=== PATIENT | female | born 1930 | race Caucasian/White ===

== ENCOUNTER 2017-01-24 08:08 | Emergency (ER) | payer MEDICARE, OTHER ==
[2017-01-24] MEDS ORDERED: Lidocaine 1% with EPINEPHrine 1:100,000 20 ML MDV INJECT ONE (08:12)
[2017-01-24 08:19] VITALS: BP 158/69
[2017-01-24] MEDS ORDERED: Bacitracin Oint 15 GM Tube TOP ONE (08:20)
--- NOTE | 2017-01-24 08:20 | EDM.PDOC ---
ED HPI GENERAL MEDICAL PROBLEM - General Chief Complaint: Laceration Stated Complaint: FALL Time Seen by Provider: 01/24/17 08:10 Source of Information: Reports: Patient, EMS, Old Records History Limitations: Reports: No Limitations - History of Present Illness INITIAL COMMENTS - FREE TEXT/NARRATIVE: 86 yo female scheduled today to enter a local [facility] fell at her home and could not get up. She incurred a scalp laceration in her fall. No extremity injuries. No LOC, nausea, or neck pain. Last tetanus was 10/08. Is on no anticoagulants. Onset: Today Onset Date: 01/24/17 Onset Time: 07:00 Duration: Minutes: Location: Reports: Head Quality: Reports: Other (Denies pain.) Severity: Mild Improves with: Reports: None Worsens with: Reports: None Context: Reports: Trauma Associated Symptoms: Reports: No Other Symptoms Treatments OLIVE PICKER: Reports: Other (see below) (none) Left Knee Pain Score (Numeric/FACES): 10 - Related Data Allergies Allergy/AdvReac Type Severity Reaction Status Date / Time morphine Allergy Cannot Verified 01/24/17 08:08 Remember Penicillins Allergy Cannot Verified 01/24/17 08:08 Remember tolterodine tartrate Allergy Rash Verified 01/24/17 08:08 [From [facility]] Home Meds: Home Meds Acetaminophen/HYDROcodone [[place] 325-5 MG] 1 - 2 tab PO Q4H PRN #20 tab [Rx] Citalopram Hydrobromide [Citalopram HBr] 20 mg PO DAILY 10/12/15 [History] Metoprolol Tartrate [Metoprolol Tartrate] 50 mg PO DAILY 10/12/15 [History] Oxybutynin 5 mg PO DAILY 10/12/15 [History] Potassium Chloride 10 meq PO DAILY 10/12/15 [History] Triamterene/Hydrochlorothiazid [Triamterene-HCTZ 37.5-25 MG] 1 tab PO DAILY [History] Acetaminophen [Tylenol Arthritis] 650 mg PO BID 11/24/15 [History] Aspirin/Calcium Carbonate/Mag [Aspirin Buffered 325 mg Tab] 325 mg PO DAILY 07/10 [History] Diclofenac Sodium [Voltaren 1% Gel] 1 applic TOP QID 11/24/15 [History] Isosorbide Mononitrate [Imdur] 30 mg PO DAILY 11/24/15 [History] Ketoconazole [Nizoral 2% Crm] 1 applic TOP DAILY 11/24/15 [History] Methimazole [Tapazole] 5 mg PO DAILY 11/24/15 [History] Nystatin [Nystatin Crm] 1 applic TOP BID 11/24/15 [History] Triamcinolone Acetonide [Triamcinolone Acetonide 0.1% Crm] 1 applic TOP BID 07/10 [History] Gabapentin [Neurontin] 300 mg PO BEDTIME 11/25/15 [History] Past Medical History HEENT History: Reports: Cataract, Other (See Below) Other HEENT History: CORNEAL DYSTROPHY, KERATOCONJUNTIVITIS SICCA OF BOTH EYES Cardiovascular History: Reports: Heart Failure, High Cholesterol, Hypertension Other Cardiovascular History: CARDIOMEGALY, DISEASE OF TRICUSPID VALVE, MITRAL VALVE INSUFFICIENCY, AORTIC VALVE INSUFFICIENCY, PULMONARY VALVE DISORDERS. Respiratory History: Reports: SOB Gastrointestinal History: Reports: Colon Polyp Genitourinary History: Reports: Urinary Incontinence, Other (See Below) Other Genitourinary History: OVERACTIVE BLADDER Musculoskeletal History: Reports: Osteoarthritis, Other (See Below) Other Musculoskeletal History: ABNORMAL INVOLUNTARY MOVEMENTS, TREMOR Neurological History: Reports: Headaches, Chronic Other Neuro History: History of migranes, not anymore, has headaches now Psychiatric History: Reports: Other (See Below) Other Psychiatric History: DYSTHYMIA Endocrine/Metabolic History: Reports: Hyperthyroidism, Hypothyroidism Other Endocrine/Metabolic History: On thyroid medicine now. Dermatologic History: Reports: Other (See Below) Other Dermatologic History: CINDY INFECTION OF FLEXURAL SKIN, ECZEMA - Past Surgical History HEENT Surgical History: Reports: Cataract Surgery, Tonsillectomy Female Surgical History: Reports: Breast Biopsy, Hysterectomy Musculoskeletal Surgical History: Reports: Other (See Below) Social & Family History - Tobacco Use Smoking Status *Q: Never Smoker - Recreational Drug Use Recreational Drug Use: No ED ROS GENERAL - Review of Systems Review Of Systems: See Below Constitutional: Reports: No Symptoms HEENT: Reports: No Symptoms Respiratory: Reports: No Symptoms Cardiovascular: Reports: No Symptoms GI/Abdominal: Reports: No Symptoms : Reports: No Symptoms Musculoskeletal: Reports: Leg Pain, Joint Pain, Other (chronic L knee pain). Denies: Neck Pain, Arm Pain, Back Pain, Hand Pain Skin: Reports: Wound (scalp laceration.) Neurological: Reports: Difficulty Walking (chronic). Denies: Confusion, Dizziness, Headache, Numbness, Paresthesia, Seizure, Syncope, Trouble Speaking Psychiatric: Reports: No Symptoms ED EXAM, SKIN/RASH Exam: See Below Exam Limited By: No Limitations General Appearance: Alert, WD/WN, No Apparent Distress Eye Exam: Bilateral Eye: Normal Inspection, PERRL Ears: Normal External Exam, Normal Canal, Hearing Grossly Normal Nose: Normal Inspection, Normal Mucosa, No Blood Throat/Mouth: Normal Inspection, Normal Lips, Normal Teeth, Normal Oropharynx, Normal Voice, No Airway Compromise Head: Atraumatic, Normocephalic Neck: Normal Inspection, Supple, Non-Tender, Full Range of Motion Respiratory/Chest: No Respiratory Distress, Lungs Clear, Normal Breath Sounds, No Accessory Muscle Use Cardiovascular: Regular Rate, Rhythm GI/Abdominal: Normal Bowel Sounds, Soft, Non-Tender, No Distention Back Exam: Normal Inspection Extremities: Normal Inspection, Normal Range of Motion, Non-Tender, No Pedal Edema Neurological: Alert, Oriented, CN II-XII Intact, Normal Cognition, No Motor/ Sensory Deficits Psychiatric: Normal Affect, Normal Mood Skin: Warm, Dry, Normal Color, No Rash, Wound/Incision (2 cm linear scalp laceration to the L temporal area. No hematoma.) Location, Skin: Head Characteristics: Linear Lymphatic: No Adenopathy Course - Vital Signs Text/Narrative:: Scalp wound anesth with 3 ml of 1% lidocaine with epi. Closure of 2.25 cm linear scalp wound with 4 x tereza. Bacitracin ointment applied. - Orders/Labs/Meds Orders: Active Orders 24 hr Category Date Time Status Lidocaine 1% w/EPINEPHrine [Xylocaine 1% with Med 01/24/17 08:12 Once EPINEPHrine 1:100,000] 5 ml INJECT ONETIME ONE Departure - Departure Time of Disposition: 08:35 Disposition: Home, Self-Care 01 Condition: Good Clinical Impression: Laceration of scalp Qualifiers: Encounter type: initial encounter Qualified Code(s): S01.01XA - Laceration without foreign body of scalp, initial encounter - Discharge Information Forms: ED Department Discharge - My Orders Last 24 Hours: My Active Orders 01/24/17 08:12 Lidocaine 1% w/EPINEPHrine [Xylocaine 1% with EPINEPHrine 1:100,000] 5 ml INJECT ONETIME ONE - Assessment/Plan Last 24 Hours: My Active Orders 01/24/17 08:12 Lidocaine 1% w/EPINEPHrine [Xylocaine 1% with EPINEPHrine 1:100,000] 5 ml INJECT ONETIME ONE
== END 2017-01-24 09:35 | disposition home or self-care (01) ==
LOC: FB.ED 08:08
DX: S01.01XA Laceration without foreign body of scalp, initial encounter (principal); I11.0 Hypertensive heart disease with heart failure; I50.9 Heart failure, unspecified; E78.00 Pure hypercholesterolemia, unspecified; M19.90 Unspecified osteoarthritis, unspecified site; Z98.49 Cataract extraction status, unspecified eye; Z90.710 Acquired absence of both cervix and uterus; Z98.890 Other specified postprocedural states; Z79.82 Long term (current) use of aspirin; Z79.899 Other long term (current) drug therapy; Z88.0 Allergy status to penicillin; Z88.5 Allergy status to narcotic agent; Z88.8 Allergy status to other drugs, medicaments and biological substances; W19.XXXA Unspecified fall, initial encounter; Y92.009 Unspecified place in unspecified non-institutional (private) residence as the place of occurrence of the external cause
CPT/HCPCS: 12001; 99282; 99283; A4217; A9270; 12011

== ENCOUNTER 2018-02-05 07:06 | Emergency (ER) | payer MEDICARE, OTHER ==
[2018-02-05] MEDS ORDERED: Ketorolac 30 MG/ML SDV IM ONE (08:43)
--- NOTE | 2018-02-05 08:44 | EDM.PDOC ---
ED HPI GENERAL MEDICAL PROBLEM - General Chief Complaint: Upper Extremity Injury/Pain Stated Complaint: FALL Time Seen by Provider: 02/05/18 07:20 Source of Information: Reports: Patient, RN History Limitations: Reports: Physical Impairment - History of Present Illness INITIAL COMMENTS - FREE TEXT/NARRATIVE: 87 y.o.w.f with multiple medical issues including knee arthritis was found in front of her bed this am. Pt c/o of left forearm pain and left buttock pain. Pt is a poor historian and no family member is present. No N/V/D or dizziness or any other acute medical issues. BP 165/70 RR 17 Pulse ox 98% on RA temp 36.7 Onset Date: 02/05/18 Onset Time: 06:32 Duration: Hour(s): Location: Reports: Upper Extremity, Left, Other (buttoc) Quality: Reports: Ache, Burning Severity: Moderate Improves with: Reports: Rest Worsens with: Reports: Movement (left arm) Context: Reports: Trauma Associated Symptoms: Reports: Other (buttock pain) left wrist Pain Score (Numeric/FACES): 8 - Related Data Allergies Allergy/AdvReac Type Severity Reaction Status Date / Time morphine Allergy Cannot Verified 01/24/17 08:08 Remember Penicillins Allergy Cannot Verified 01/24/17 08:08 Remember tolterodine tartrate Allergy Rash Verified 01/24/17 08:08 [From [facility]] Home Meds: Home Meds Acetaminophen/HYDROcodone [[place] 325-5 MG] 1 - 2 tab PO Q4H PRN #20 tab [Rx] Citalopram Hydrobromide [Citalopram HBr] 20 mg PO DAILY 10/12/15 [History] Metoprolol Tartrate 50 mg PO DAILY 10/12/15 [History] Oxybutynin 5 mg PO DAILY 10/12/15 [History] Potassium Chloride 10 meq PO DAILY 10/12/15 [History] Triamterene/Hydrochlorothiazid [Triamterene-HCTZ 37.5-25 MG] 1 tab PO DAILY [History] Acetaminophen [Tylenol Arthritis] 650 mg PO BID 11/24/15 [History] Aspirin/Calcium Carbonate/Mag [Aspirin Buffered 325 mg Tab] 325 mg PO DAILY 07/10 [History] Diclofenac Sodium [Voltaren 1% Gel] 1 applic TOP QID 11/24/15 [History] Isosorbide Mononitrate [Imdur] 30 mg PO DAILY 11/24/15 [History] Ketoconazole [Nizoral 2% Crm] 1 applic TOP DAILY 11/24/15 [History] Methimazole [Tapazole] 5 mg PO DAILY 11/24/15 [History] Nystatin [Nystatin Crm] 1 applic TOP BID 11/24/15 [History] Triamcinolone Acetonide [Triamcinolone Acetonide 0.1% Crm] 1 applic TOP BID 07/10 [History] Gabapentin [Neurontin] 300 mg PO BEDTIME 11/25/15 [History] Past Medical History HEENT History: Reports: Cataract, Other (See Below) Other HEENT History: CORNEAL DYSTROPHY, KERATOCONJUNTIVITIS SICCA OF BOTH EYES Cardiovascular History: Reports: Heart Failure, High Cholesterol, Hypertension, Other (See Below) Other Cardiovascular History: CARDIOMEGALY, DISEASE OF TRICUSPID VALVE, MITRAL VALVE INSUFFICIENCY, AORTIC VALVE INSUFFICIENCY, PULMONARY VALVE DISORDERS. Respiratory History: Reports: SOB Gastrointestinal History: Reports: Colon Polyp Genitourinary History: Reports: Urinary Incontinence, Other (See Below) Other Genitourinary History: OVERACTIVE BLADDER Musculoskeletal History: Reports: Osteoarthritis, Other (See Below) Other Musculoskeletal History: ABNORMAL INVOLUNTARY MOVEMENTS, TREMOR Neurological History: Reports: Headaches, Chronic, Other (See Below) Other Neuro History: History of migranes, not anymore, has headaches now Psychiatric History: Reports: Other (See Below) Other Psychiatric History: DYSTHYMIA Endocrine/Metabolic History: Reports: Hyperthyroidism, Hypothyroidism Other Endocrine/Metabolic History: On thyroid medicine now. Dermatologic History: Reports: Other (See Below) Other Dermatologic History: CINDY INFECTION OF FLEXURAL SKIN, ECZEMA - Past Surgical History HEENT Surgical History: Reports: Cataract Surgery, Tonsillectomy Female Surgical History: Reports: Breast Biopsy, Hysterectomy Musculoskeletal Surgical History: Reports: Other (See Below) Social & Family History - Family History Family Medical History: Noncontributory - Tobacco Use Smoking Status *Q: Never Smoker Second Hand Smoke Exposure: No - Caffeine Use Caffeine Use: Reports: Coffee - Recreational Drug Use Recreational Drug Use: No Review of Systems - Review of Systems Review Of Systems: Unable To Obtain ED EXAM, GENERAL - Physical Exam Exam: See Below Exam Limited By: Physical Impairment General Appearance: Alert, No Apparent Distress, Obese Eye Exam: Bilateral Eye: Conjunctival Injection Ears: Normal External Exam Ear Exam: Bilateral Ear: Auricle Normal Nose: Normal Inspection, Normal Mucosa, No Blood Throat/Mouth: Normal Inspection, Normal Lips, Normal Oropharynx, Normal Voice, No Airway Compromise Head: Atraumatic, Normocephalic Neck: Normal Inspection, Supple, Non-Tender Respiratory/Chest: No Respiratory Distress, Lungs Clear, Normal Breath Sounds, No Accessory Muscle Use, Chest Non-Tender Cardiovascular: Normal Peripheral Pulses, Regular Rate, Rhythm, No Edema, No Gallop, No JVD, No Murmur, No Rub GI/Abdominal: Normal Bowel Sounds, Soft, Non-Tender, No Organomegaly, No Distention, No Abnormal Bruit, No Mass, Pelvis Stable (Female) Exam: Deferred Rectal (Female) Exam: Deferred Back Exam: Normal Inspection, Full Range of Motion Extremities: Joint Swelling (both knees, chronic), Limited Range of Motion ( left forearm) Neurological: Alert, CN II-XII Intact, Abnormal Gait Psychiatric: Normal Affect, Normal Mood Skin Exam: Warm, Dry, Intact, Normal Color, No Rash Lymphatic: No Adenopathy Course - Vital Signs Text/Narrative:: 87 y.o.w.f with multiple medical issues including knee arthritis was found in front of her bed this am. Pt c/o of left forearm pain and left buttock pain. Pt is a poor historian and no family member is present. No N/V/D or dizziness or any other acute medical issues. BP 165/70 RR 17 Pulse ox 98% on RA temp 36.7 PE: obese, bedridden pt with left forearm pain. Pt stated she tried to reach the wheel chair and fell Imaging: Left forearm: Closed comminuted Fx left distal radius, Pelvic Xray: NAD Impression: Comminuted left distal Radius Fx, closed. Fall 8.55 am Consultation: Dr. Hernandez, Ortho: Surgery scheduled for this Sunday, give Tramadol and/or [place] for pain Tx: Splint placement, long arm, Toradol, ICE Reexam: Improved Plan: Back to [place] with instructions Last Recorded V/S: Last Vital Signs Temp 36.7 C 02/05/18 07:20 Pulse 69 02/05/18 09:51 Resp 18 02/05/18 09:51 BP 166/91 H 02/05/18 09:51 Pulse Ox 97 02/05/18 09:51 - Orders/Labs/Meds Meds: Medications Discontinued Medications Generic Name Dose Route Start Last Admin Trade Name Paula PRN Reason Stop Dose Admin Ketorolac Tromethamine 30 mg 02/05/18 08:43 02/05/18 08:49 Toradol IM 02/05/18 08:44 30 mg ONETIME ONE Administration Departure - Departure Time of Disposition: 09:36 Disposition: Home, Self-Care 01 Condition: Good Clinical Impression: Closed fracture of left distal radius Qualifiers: Encounter type: initial encounter Fracture morphology: unspecified fracture morphology Qualified Code(s): S52.502A - Unspecified fracture of the lower end of left radius, initial encounter for closed fracture - Discharge Information Referrals: Luis Samayoa MD [Primary Care Provider] - Forms: ED Department Discharge Additional Instructions: Please take tramadol for mod pain, norco for severe pain, rest, ice and elevation of left arm, f/u with Dr. Hernandez this Sunday. Please come back if your symptoms get wore acutely
[2018-02-05 09:52] VITALS: BP 166/91
--- NOTE | 2018-02-05 11:02 | CR ---
INDICATION: Left wrist injury from a fall. LEFT WRIST: Three views of the left wrist revealed Colles type fracture of the distal radial shaft and metaphysis and the distal ulnar shaft and metaphysis with medial angulation at the fracture sites to a minimal degree and anterior angulation at the radial fracture site with dorsal angulation of the radial joint surface. Posterior offset of the distal radial fracture fragment is noted of approximately 5-6 mm. Lateral offset of the distal radial fracture fragment of approximately 3-4 mm is noted. Decreased bone density compatible with osteoporosis is noted. Evidence of previous healed fracture is noted at the third through fifth metacarpals. Degenerative changes are noted at the first metacarpocarpal joint and second metacarpophalangeal joint. IMPRESSION: 1. Distal radial and ulnar fractures with moderate deformity. 2. Osteoporosis. 3. Osteoarthritis. MTDD
--- NOTE | 2018-02-05 11:05 | CR ---
INDICATION: Left wrist injury from a fall. LEFT FOREARM: Frontal and lateral views of the left forearm with three images revealed somewhat comminuted fractures of the distal radius and ulna, as noted on left wrist x-ray, with anterior angulation at the radial fracture site and offset at the radial fracture site noted. Diminished bone density is noted, compatible with osteoporosis. No other acute bone or joint abnormality was identified. MTDD
--- NOTE | 2018-02-05 11:09 | CR ---
INDICATION: Fall, right-sided pelvic pain. PELVIS: Two frontal views of the pelvis were obtained and revealed an appearance suggesting some widening of the right sacroililac joint. Whether this is an acute finding is difficult to determine, since no old images were available. Degenerative changes are also suggested at the right sacroiliac joint. The hip joints appear to be fairly intact with only minimal degenerative changes at the right hip joint. No definite fracture or dislocation was seen at the hips. The remainder of the pelvis was unremarkable, except for demineralization compatible with osteoporosis. IMPRESSION: No definite acute fracture or dislocation; however, there appears to be a widening of the right sacroiliac joint, which could be posttraumatic or due to previous trauma but should be correlated clinically. MTDD
== END 2018-02-05 10:08 | disposition home or self-care (01) ==
LOC: FB.ED 07:06
DX: S52.502A Unspecified fracture of the lower end of left radius, initial encounter for closed fracture (principal); I11.0 Hypertensive heart disease with heart failure; I50.9 Heart failure, unspecified; Z88.0 Allergy status to penicillin; Z79.899 Other long term (current) drug therapy; Z79.82 Long term (current) use of aspirin; W19.XXXA Unspecified fall, initial encounter; Z88.5 Allergy status to narcotic agent
CPT/HCPCS: 72170; 73090; 73110; 96372; 99283; J1885

== ENCOUNTER 2018-02-08 06:48 | Day surgery (SDC) | payer MEDICARE, OTHER ==
[~2018-02-08 06:48] MED LIST: Lactated Ringers 1,000 ML IV SCH; Sodium Chloride 0.9% 10 ML Syringe FLUSH PRN
[2018-02-08] MEDS ORDERED: Clindamycin in 0.9 % Sod Chlor 600 MG/50 ML BAG IV ONE (08:00)
[2018-02-08] MEDS ORDERED: Midazolam 1 MG/ML 2 ML SDV IV ONE (08:19)
[2018-02-08] MEDS ORDERED: Propofol 200 MG/20 ML SDV IV ONE (08:19)
[2018-02-08] MEDS ORDERED: Lidocaine 0.5% 50 ML SDV INJECT ONE (08:19)
[2018-02-08] MEDS ORDERED: fentaNYL 100 MCG/2 ML SDV IV ONE (08:19)
[2018-02-08] MEDS ORDERED: Acetaminophen/HYDROcodone 325-5 MG Tab PO PRN (10:53)
[2018-02-08] MEDS ORDERED: Ketorolac 30 MG/ML SDV IVPUSH ONE (11:00)
[2018-02-08] MEDS ORDERED: Ketorolac 30 MG/ML SDV IM ONE (11:00)
[2018-02-08 13:06] VITALS: BP 116/57
--- NOTE | 2018-02-08 13:21 | CR ---
INDICATION: Wrist fracture repair in OR. C-ARM IN OR, LESS THAN ONE HOUR: 0.1 minute C-arm fluoroscopy time was utilized in OR during ORIF for comminuted left radial fracture site. A plate with 8 screws is noted fixing the radial fracture fragments in adequate position and alignment without a definite complicating process. The ulnar fracture site is unchanged in position and alignment. It is also adequate in position and alignment. IMPRESSION: Satisfactory appearance post ORIF distal radial fracture site. MTDD
--- NOTE | 2018-02-08 14:16 | OR ---
DATE OF OPERATION: 02/08/2018 SURGEON: Storm Hernandez DO PREOPERATIVE DIAGNOSIS: Left distal radius fracture, extra-articular, closed. POSTOPERATIVE DIAGNOSIS: Left distal radius fracture, extra-articular, closed. PROCEDURES PERFORMED: 1. Open reduction and internal fixation of left distal radius. 2. Application of short-arm splint. ANESTHESIA: Diana block plus conscious sedation. FLUID: Lactated Ringer's solution. ESTIMATED BLOOD LOSS: 25 mL. COMPLICATIONS: None. SPECIMEN: None. DISCHARGE DISPOSITION: Stable to PACU. INDICATION FOR PROCEDURE: The patient is a patient of mine from the nursing facility. We usually do injections for her. She fell on her outstretched left hand. She was seen in the emergency department, where preoperative imaging confirmed the above-mentioned diagnosis. Risks and benefits of the procedure were explained to the patient and informed consent was obtained. DETAILS OF PROCEDURE: The patient was seen preoperatively by myself and the Anesthesia staff in the preoperative holding area, where the operative site was marked. She was brought to the operative suite by the Anesthesia staff, where Salcha block plus conscious sedation was administered. The left upper extremity was then prepped and draped in a sterile manner. Time-out was called identifying the correct patient, the correct procedure, the correct site, and that antibiotics had been begun within the appropriate period of time. An incision was made over the flexor carpi radialis tendon and carried from the radiocarpal joint proximally approximately 10 cm. Bleeding during the case was controlled with Bovie electrocautery. I went through the ventral aspect of the tendon sheath and mobilized the tendon radially in order to protect the radial artery. I then went through the dorsal aspect of the FCR sheath and then identified the pronator. I elevated the pronator from its radial border and exposed the fracture site. I spent a lot of time trying to reduce this. I used K-wires multiple times and then tried reduction clamps, but was unable to maintain my reduction. I then decided that I would reduce it with a plate. I placed the plate, short axial lock Salina plate, on the distal fragment and then placed my proximal and distal row screws appropriately. Then, using traction and manipulation of the plate, I reduced the fracture and then holding that in position very carefully, drilled my oblong screw hole and then placed a screw. I then took fluoroscopy images. This reduced it very nicely. I then placed my other two shaft screws. This maintained good reduction. I then took AP and lateral radiographs, which were final radiographs, and then copiously irrigated with saline. I did let the tourniquet down at that point, as I wanted to examine what bleeders were present, because we did also have an distal ulna fracture, which made this very unstable. I examined it very carefully. All I did see was just oozing from muscle belly. I did place a small amount of Gelfoam in the base of the wound. I then closed with 2-0 Vicryl interrupted subcutaneous sutures and then closed with 3-0 nylon horizontal mattress sutures followed by Betadine-soaked Adaptic, followed by Webril, followed by fiberglass splint, followed by two layers of Caleb wrap. The patient was then allowed to awaken from conscious sedation and taken to the PACU in a stable condition. I was called later at the clinic. There was a concern about the hand being just slightly cold and a little bit cyanotic. I went and examined it. I did have a capillary refill time of less than 2 seconds and pulse oximetry measured over 95. I then advised to keep her there for a little bit and then take her back to the nursing facility. I then visited her in the nursing facility and by that time, the digits were much warmer and capillary refill time was again less than 2 seconds. /[id number] WILLIE/DEVIN
== END 2018-02-08 12:10 | disposition home or self-care (01) ==
LOC: FB.SDS 06:48
PROVIDERS: ATTEND Orthopaedic Surgery
DX: S52.552A Other extraarticular fracture of lower end of left radius, initial encounter for closed fracture (principal); W19.XXXA Unspecified fall, initial encounter; K21.9 Gastro-esophageal reflux disease without esophagitis; I10 Essential (primary) hypertension; E78.00 Pure hypercholesterolemia, unspecified; E03.9 Hypothyroidism, unspecified; M23.3 Other meniscus derangements; M17.10 Unilateral primary osteoarthritis, unspecified knee; M19.032 Primary osteoarthritis, left wrist; M81.0 Age-related osteoporosis without current pathological fracture; M06.9 Rheumatoid arthritis, unspecified; F17.210 Nicotine dependence, cigarettes, uncomplicated; Z79.82 Long term (current) use of aspirin; Z79.899 Other long term (current) drug therapy; Z88.0 Allergy status to penicillin; Z88.5 Allergy status to narcotic agent; Z88.6 Allergy status to analgesic agent
CPT/HCPCS: 01830; 25607; 76000; J1885; J2250; J2704; J3010; J3490; J7050; J7120

== ENCOUNTER 2018-08-08 07:38 | Observation (INO) | payer MEDICARE, OTHER ==
[2018-08-08] MEDS ORDERED: Gabapentin 300 MG Cap PO ONE (08:00)
[2018-08-08] MEDS ORDERED: Acetaminophen 500 MG Tab PO ONE (08:00)
[2018-08-08] MEDS ORDERED: Scopolamine 1.5 MG Transdermal Patch TRDERM ONE (08:00)
[2018-08-08] MEDS ORDERED: Clindamycin in 0.9 % Sod Chlor 900 MG/50 ML BAG IV SCH (08:30)
[2018-08-08] MEDS ORDERED: Clindamycin in 0.9 % Sod Chlor 900 MG/50 ML BAG IV ONE (08:30)
[2018-08-08] MEDS: Lactated Ringers 1,000 ML IV SCH ×2 (08:40→14:39)
[2018-08-08] MEDS ORDERED: Ropivacaine 49.25 ML, Ketorolac 30 MG, EPINEPHrine 0.5 MG, cloNIDine 80 MCG, Sodium Chl... INJECT SCH ×5 (09:30)
[2018-08-08] MEDS ORDERED: Vancomycin 1 GM SDV ONE (11:28)
[2018-08-08] MEDS ORDERED: Naloxone 0.4 MG/ML SDV IVPUSH PRN (12:00)
[2018-08-08] MEDS ORDERED: Sennosides 8.6 MG Tab PO PRN (12:00)
[2018-08-08] MEDS ORDERED: diphenhydrAMINE 50 MG/ML SDV IVPUSH PRN (12:00)
[2018-08-08] MEDS ORDERED: Bisacodyl 5 MG Tab PO PRN (12:00)
[2018-08-08] MEDS ORDERED: Magnesium Hydroxide 400 MG/5 ML Susp 30 ML Cup PO PRN (12:00)
[2018-08-08] MEDS ORDERED: Ondansetron 4 MG/2 ML SDV IVPUSH PRN (12:00)
[2018-08-08] MEDS ORDERED: Docusate Sodium 100 MG Cap PO PRN (12:00)
[2018-08-08] MEDS ORDERED: Nitroglycerin 0.4 MG Tab.SL SL PRN (12:06)
[2018-08-08] MEDS ORDERED: Benzonatate 100 MG Cap PO PRN (12:06)
[2018-08-08] MEDS ORDERED: fentaNYL 100 MCG/2 ML SDV IV ONE ×2 (12:07→12:20)
[2018-08-08] MEDS ORDERED: Lactated Ringers 1,000 ML IV ONE (12:07)
[2018-08-08] MEDS ORDERED: Ropivacaine 0.5% 5 MG/ML 30 ML SDV ONE (12:07)
[2018-08-08] MEDS ORDERED: Midazolam 1 MG/ML 2 ML SDV IV ONE ×2 (12:07→12:20)
[2018-08-08] MEDS: Acetaminophen 1,000 MG in Premix Bag 1 BAG IV SCH ×3 (13:08→23:54)
--- NOTE | 2018-08-08 13:09 | PCM.SN ---
- Free Text/Narrative Note: ANESTHESIA PAIN SERVICE Date: 08/08/2018 Time: 1217 to 1228 RE: Postoperative Pain Control Preoperative Dx: Severe DJD Left Knee Postoperative Rx: Left TKA Procedure: Left Adductor Canal Block with Ultrasound Guidance [U/S] per surgeon request postoperatively. Risks and Benefits discussed with the patient and her family including block failure. They wished to proceed with all questions answered. Permit signed. Monitors: ECG, NIBP, SpO2 and nasal cannula O2 on. Sedation: 1 mg Versed with 25 mcg Fentanyl IV with the patient easily aroused and orientated. The patient is in Phase 1 in the PACU. Using U/S, I was able to quickly identify the left Femoral Artery with the Satorius Muscle. I prepped the area with Chlora-Prep and allowed it to dry. Using aseptic technique, I inserted a 4 inch 22 G Stimplex needle under U/S guidance to the proper spot next to the artery and under the muscle. Negative aspiration and a told of 20 ml's of .5 % Naropin in divided doses without complications with U/S visualization. The patient tolerated this very well. Vital signs were stable throughout and see nursing notes. CPT Code: 18189 MATILDE Sadler CRNA
--- NOTE | 2018-08-08 13:26 | CR ---
INDICATION: Postop TKA. LEFT KNEE: Frontal and lateral views of the left knee were obtained 08/08/18 and compared with 06/29/17 and now reveals a total knee arthroplasty with postsurgical changes, including skin tereza anteriorly and air in the joint. The position and alignment of the TKA appears to be anatomic. No evidence of a complicating process was identified. Methylmethacrylate is noted at the tibial site and to a lesser extent at the femoral component. IMPRESSION: Satisfactory appearance post total knee arthroplasty. SHILA
--- NOTE | 2018-08-08 15:07 | PCM.CONS ---
H&P History of Present Illness - General Date of Service: 08/08/18 Admit Problem/Dx: Admission Diagnosis/Problem Admission Diagnosis/Problem Knee joint replacement by other means Source of Information: Patient, Old Records, Provider History Limitations: Reports: No Limitations - History of Present Illness Initial Comments - Free Text/Narative: Patient is an 88-year-old female I was asked to see postoperatively for medical management of her multiple chronic medical problems. The patient had a total left knee replacement done today. Surgery went well with no concerns. She is very comfortable right now except for right over the top of her knee she feels a burning sensation. She denies chest pain, shortness of breath. She was a little nauseated after surgery but the plan on the scopolamine patch and that took care of the nausea. Pain is well controlled. Past medical history: -History of degenerative joint disease requiring joint replacement -hypertension -Hyperthyroidism currently on methimazole, status post iodine ablation 2 -Peripheral vascular disease -Overactive bladder -History of diastolic heart failure, mild mitral regurgitation, was seen by cardiology for cardiac clearance prior to surgery. Was having intermittent chest pain at that time. MPS Cardiolite done on 07/25/18 showed inferior and apical reversible changes. Underwent cardiac catheterization on 07/26/18 showing moderate stenosis mid LAD and ostial RCA with FFR values indicating medical management. Mild diffuse disease. Previous echocardiogram done 12/13/2016 showed ejection fraction 55-60%, mildly abnormal diastolic dysfunction of the left ventricle. Mild mitral regurgitation. -History of major depression in remission -History of recurrent UTIs with urinary incontinence Social Hx: Patient is a resident at the [facility] and has had significant limitation of her activity due to severe degenerative joint disease. Nonsmoker , nondrinker. She was placed in the [facility] and is with 4 children. 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 Her niece Nikkie Ray works here at our facility. Family Hx: Noncontributory. - Related Data Allergies/Adverse Reactions: Allergies Allergy/AdvReac Type Severity Reaction Status Date / Time morphine Allergy Cannot Verified 08/08/18 08:24 Remember NSAIDS (Non-Steroidal Allergy Other Verified 08/08/18 08:24 Anti-Inflamma Penicillins Allergy Cannot Verified 08/08/18 08:24 Remember tolterodine tartrate Allergy Rash Verified 08/08/18 08:24 [From Detrol] Home Medications: Home Meds Isosorbide Mononitrate [Imdur] 30 mg PO DAILY 11/24/15 [History] Methimazole [Tapazole] 5 mg PO DAILY 11/24/15 [History] Gabapentin [Neurontin] 600 mg PO BEDTIME 11/25/15 [History] Acetaminophen [Acetaminophen Extra Strength] 1,000 mg PO TID 02/07/18 [History] Bisacodyl [Dulcolax] 1 supp RECTAL Q72H PRN 02/07/18 [History] Calcium Carbonate/Simethicone [Jadyn-[place] Heartburn+Gas] 2 ea PO TID PRN 02/07 [History] Dextran 70/Hypromellose [Artificial Tears Eye Drops] 1 drop EYEBOTH BID [History] Furosemide [Lasix] 40 mg PO BID 02/07/18 [History] Gabapentin [Neurontin] 300 mg PO DAILY 02/07/18 [History] Lidocaine/Transparent Dressing [Anecream 4% Kit] 1 each TP BID 02/07/18 [History ] Loperamide [Imodium AD] 2 mg PO ASDIRECTED PRN 02/07/18 [History] Magnesium Hydroxide [Milk of Magnesia] 30 ml PO DAILY 02/07/18 [History] Magnesium Oxide 400 mg PO BID 02/07/18 [History] Nitroglycerin 0.4 mg SL ASDIRECTED PRN 02/07/18 [History] Pravastatin Sodium [Pravachol] 20 mg PO BEDTIME 02/07/18 [History] Venlafaxine [Effexor XR] 150 mg PO DAILY 02/07/18 [History] guaiFENesin [Robitussin] 10 ml PO Q4H PRN 02/07/18 [History] traMADol [Ultram] 50 mg PO TID 02/07/18 [History] Acetaminophen/HYDROcodone [[place] 325-5 MG] 1 tab PO Q8H PRN 08/07/18 [History] Cholecalciferol (Vitamin D3) [Vitamin D3] 1,000 unit PO DAILY 08/07/18 [History] Dextran 70/Hypromellose [Artificial Tears] 1 drop EYEBOTH Q1H PRN 08/07/18 [ History] Acetaminophen [Tylenol] 650 mg PO Q4H PRN 08/08/18 [History] Benzonatate 200 mg PO TID PRN 08/08/18 [History] [place] Tar [Ashvin-Gel Tar] 118 ml TP TH 08/08/18 [History] Eucalyptus Oil/Menthol/Camphor [Vicks Vaporub Ointment] 1 applic TP ASDIRECTED PRN 08/08/18 [History] Krill/Om-3/DHA/EPA/Phospho/Ast [Krill Oil 500 mg Softgel] 500 mg PO DAILY [History] Potassium Chloride [Klor-Con M20] 30 meq PO DAILY 08/08/18 [History] traMADol [Ultram] 50 mg PO TID PRN 08/08/18 [History] Past Medical History HEENT History: Reports: Cataract, Other (See Below) Other HEENT History: CORNEAL DYSTROPHY, KERATOCONJUNTIVITIS SICCA OF BOTH EYES Cardiovascular History: Reports: Heart Failure, High Cholesterol, Hypertension, PVD, Other (See Below) Other Cardiovascular History: CARDIOMEGALY, DISEASE OF TRICUSPID VALVE, MITRAL VALVE INSUFFICIENCY, AORTIC VALVE INSUFFICIENCY, PULMONARY VALVE DISORDERS. Respiratory History: Reports: SOB Gastrointestinal History: Reports: Colon Polyp, GERD Other Gastrointestinal History: GASTRIC ULCER Genitourinary History: Reports: Neurogenic Bladder, Urinary Incontinence, Other (See Below) Other Genitourinary History: OVERACTIVE BLADDER CERTIFIED FAMILY MEDIATOR History: Reports: Musculoskeletal History: Reports: Osteoarthritis, Other (See Below) Other Musculoskeletal History: ABNORMAL INVOLUNTARY MOVEMENTS, TREMOR Neurological History: Reports: Headaches, Chronic, Other (See Below) Other Neuro History: History of migranes, not anymore, has headaches now Psychiatric History: Reports: Depression, Other (See Below) Other Psychiatric History: DYSTHYMIA Endocrine/Metabolic History: Reports: Hyperthyroidism, Hypothyroidism Other Endocrine/Metabolic History: On thyroid medicine now. Dermatologic History: Reports: Eczema, Other (See Below) Other Dermatologic History: CINDY INFECTION OF FLEXURAL SKIN, ECZEMA - Past Surgical History HEENT Surgical History: Reports: Adenoidectomy, Cataract Surgery, Tonsillectomy GI Surgical History: Reports: Appendectomy, Cholecystectomy, Colonoscopy, EGD, Polypectomy Female Surgical History: Reports: Breast Biopsy, Hysterectomy Other Female Surgeries/Procedures: BREAST LUMPECTOMY Musculoskeletal Surgical History: Reports: Other (See Below) Other Musculoskeletal Surgeries/Procedures:: CLOSED REDUCTION OF HUMERUS Social & Family History - Family History Family Medical History: Noncontributory - Tobacco Use Smoking Status *Q: Never Smoker - Caffeine Use Caffeine Use: Reports: Coffee - Recreational Drug Use Recreational Drug Use: No Drug Use in Last 12 Months: No H&P Review of Systems - Review of Systems: Review Of Systems: ROS reveals no pertinent complaints other than HPI. Exam - Exam Exam: See Below - Vital Signs Vital Signs: Last Vital Signs Temp 36.6 C 08/08/18 07:37 Pulse 68 08/08/18 13:15 Resp 12 08/08/18 13:15 BP 140/64 08/08/18 13:15 Pulse Ox 98 08/08/18 13:15 Weight: 95.821 kg - Exam General: Alert, Oriented, Cooperative HEENT: PERRLA, EOMI, Mucosa Moist & [place] Neck: Supple Lungs: Clear to Auscultation, Normal Respiratory Effort Cardiovascular: Regular Rate, Regular Rhythm, Normal S1, Normal S2 GI/Abdominal Exam: Normal Bowel Sounds, Soft, Non-Tender, No Distention Extremities: No Pedal Edema Skin: Other (Dressings cool and dry, no redness or pallor above the knee visible around the wrap.) Psychiatric: Alert, Normal Affect, Normal Mood - Patient Data Lab Results Last 24 hrs: Laboratory Results - last 24 hr 08/08/18 Range/Units 08:00 Blood Type A POSITIVE Gel Antibody Screen Negative Consult PN Assessment/Plan POD#: 0 Procedures: Procedures ANESTH DX KNEE ARTHROSCOPY (11/25/15) ANESTH LOWER ARM SURGERY (02/08/18) APPLY FOREARM SPLINT (10/12/15) ARTHROSCOPY OF JOINT (11/25/15) ASSAY OF FREE THYROXINE (03/27/18) ASSAY OF TOTAL THYROXINE (09/26/17) ASSAY THYROID STIM HORMONE (03/27/18) ASSAY TRIIODOTHYRONINE (T3) (09/26/17) COMPLETE CBC AUTOMATED (03/27/18) COMPLETE CBC W/AUTO DIFF WBC (02/09/18) COMPREHEN METABOLIC PANEL (03/27/18) DRAIN/INJ JOINT/BURSA W/O US (04/24/18) EMERGENCY DEPT VISIT (02/05/18) EMERGENCY DEPT VISIT (01/24/17) EMERGENCY DEPT VISIT (01/24/17) EXTREMITY STUDY (01/30/18) EXTREMITY STUDY (01/12/16) FLUOROSCOPY <1 HR PHYS/QHP (02/08/18) KNEE ARTHROSCOPY/SURGERY (11/25/15) LIPID PANEL (03/27/18) MANUAL THERAPY 1/> REGIONS (11/21/16) METABOLIC PANEL TOTAL CA (02/01/18) OFFICE/OUTPATIENT VISIT EST (04/24/18) OFFICE/OUTPATIENT VISIT EST (02/06/18) OFFICE/OUTPATIENT VISIT EST (06/22/17) OT EVALUATION (11/17/15) PT EVAL HIGH COMPLEX 45 MIN (08/21/16) PT EVALUATION (12/23/15) ROUTINE VENIPUNCTURE (03/27/18) RPR S/N/AX/GEN/TRNK 2.5CM/< (01/24/17) TDAP VACCINE 7 YRS/> IM (10/12/15) THER/PROPH/DIAG INJ SC/IM (02/05/18) THERAPEUTIC EXERCISES (12/15/16) TREAT FX RAD EXTRA-ARTICUL (02/08/18) ULTRASOUND THERAPY (11/21/16) US COMPL JOINT R-T W/IMG (12/02/13) US EXAM OF HEAD AND NECK (09/10/14) WHIRLPOOL THERAPY (12/23/15) X-RAY EXAM CHEST 1 VIEW (02/06/18) X-RAY EXAM HIP UNI 1 VIEW (03/01/18) X-RAY EXAM KNEE 4 OR MORE (06/29/17) X-RAY EXAM OF FOREARM (02/05/18) X-RAY EXAM OF KNEE 1 OR 2 (04/11/17) X-RAY EXAM OF PELVIS (02/05/18) X-RAY EXAM OF WRIST (04/02/18) X-RAY EXAM OF WRIST (03/21/18) (1) Status post total knee replacement, left SNOMED Code(s): 7881826927940 Code(s): Z96.652 - PRESENCE OF LEFT ARTIFICIAL KNEE JOINT Current Visit: Yes Comment: Managed per Dr. Hernandez. (2) Depression SNOMED Code(s): 32403291 Code(s): F32.9 - MAJOR DEPRESSIVE DISORDER, SINGLE EPISODE, UNSPECIFIED Current Visit: Yes Comment: Stable, continue home meds. (3) Hyperthyroidism SNOMED Code(s): 57415951 Code(s): E05.90 - THYROTOXICOSIS, UNSP WITHOUT THYROTOXIC CRISIS OR STORM Current Visit: Yes Comment: Stable, monitor for symptoms of flaring. Continue methimazole. Typically patients with hyperthyroidism should be treated with a beta ruby preoperatively and tapered after surgery, but this patient isn't on a beta ruby. Given her recent cardiac evaluation, it isn't entirely clear to me why she isn't, but I am not sure there would be indication now post- operatively to start that. I see a previous hx of Toprol XL 25 mg but can't find reason it was discontinued. If she were to have increased heart rate would have very low threshhold to start. (4) Hypertension SNOMED Code(s): 91351280 Code(s): I10 - ESSENTIAL (PRIMARY) HYPERTENSION Current Visit: Yes Comment: Blood pressures currently adequately controlled. Continue home meds. (5) Hyperlipidemia SNOMED Code(s): 43711860 Code(s): E78.5 - HYPERLIPIDEMIA, UNSPECIFIED Current Visit: Yes Comment: Stable. (6) DVT prophylaxis SNOMED Code(s): 268032639, 958270575 Code(s): DCH2560 - Current Visit: Yes Comment: Per Dr. Hernandez. SCDs, TEDs. Problem List Initiated/Reviewed/Updated: Yes Plan: CODE STATUS per long term orders is DNR and reviewed with the patient. She would not want resuscitation if she were to but she does think she may want to be intubated if her breathing were to get so bad that we were to be concerned she would without intubation. Thus patient is a DNR/yes intubation.
[2018-08-08] MEDS: traMADol 50 MG Tab PO PRN (15:37)
[2018-08-08] MEDS: Magnesium Oxide 400 MG Tab *PTOM PO SCH (17:50)
--- NOTE | 2018-08-08 18:29 | OR ---
DATE OF OPERATION: 08/08/2018 SURGEON: Storm Hernandez DO PREOPERATIVE DIAGNOSIS: Left knee primary osteoarthritis. POSTOPERATIVE DIAGNOSIS: Left knee primary osteoarthritis. PROCEDURE: Left knee total knee arthroplasty. ANESTHESIA: Spinal plus conscious sedation. FLUID: Lactated Ringer's solution. ESTIMATED BLOOD LOSS: 250 mL. COMPLICATIONS: None. SPECIMEN: None. DISCHARGE DISPOSITION: Stable to PACU. TOURNIQUET TIME: 40 minutes. INSTRUMENTATION: DePuy Attune size 6 left cemented cruciate retaining femoral component, a 5 mm fixed bearing cruciate retaining tibial insert, a 38 mm polyethylene patella, and a fixed bearing size six 5 mm polyethylene tibial insert. HISTORY AND INDICATIONS FOR PROCEDURE: The patient is well known to me. She failed nonoperative treatment over a long period of time. Preoperative imaging confirmed the above-mentioned diagnosis. Risks and benefits of the procedure were explained to the patient and informed consent was obtained. DETAILS OF PROCEDURE: The patient was seen preoperatively by myself and the Anesthesia staff in the preoperative holding area where the operative site was marked. She was brought to the operative suite by the Anesthesia staff where spinal sedation plus conscious sedation was administered. A sterile Coreas catheter was placed. A well-padded tourniquet was placed on the left thigh. The left lower extremity was then prepped and draped in sterile manner. Time- out was called identifying the correct patient, correct procedure, the correct site, and the antibiotics had been begun within an appropriate period of time. The left lower extremity was exsanguinated. Tourniquet was raised to 300 mmHg with the knee flexed and then let down during cementing. A midline incision was made from the tibial tubercle to about 4 fingerbreadths proximal to the patella. A medial parapatellar arthrotomy was made. The medial tibia was exposed using Bovie electrocautery. Bleeding during the case was controlled with Bovie electrocautery. The infrapatellar fat pad was removed which was quite extensive. A full synovectomy was performed. The knee was then flexed. Rongeur was used to create a trough in the distal femur. A reamer was then used to ream the distal tibia. An intramedullary femoral guide at 5 degree valgus, 9 mm distal cut was then inserted and tamped and then held in place with pins. The intramedullary portion of the guide was removed. The distal cut was then made. The guide was then removed and the pins were removed. A posterior condylar guide was inserted 3 degree valgus. This measured size 6, and 2 pins were placed for the chamfer block. The chamfer block was then inserted. Anterior-posterior chamfer cuts were then made. The chamfer block was then removed. Sharp Hohmann and blunt Hohmann were then placed to anteriorize the tibia and protect the medial and lateral collateral ligaments. An extramedullary tibial guide was used at 3 mm distal cut using the stylus through the slot. This was pinned into place and the proximal tibial cut was then made. The bone was quite soft. A size 5 baseplate was then pinned into place, reamed, and then tamped. We then placed our femur and then drilled the lugs and then placed a size six 5 mm tibial trial insert. This provided excellent stability throughout range of motion in both extension and mid flexion with range of motion 0 to 135 degrees without difficulty. We then removed all our components, copiously irrigated with saline. Please note that I also had everted the patella and made a patellar cut twice. The bone was quite soft and then placed a 38 mm trial and drilled this as well. The components were removed. The wound was irrigated copiously with saline. I then let tranexamic acid sit for about 3 minutes and then re-irrigated and placed a dry lap down the canal and then over the bone. We then cemented our components in place and let them set up in full extension with a size six 5 mm tibial insert. We then lowered the tourniquet at 40 minutes. We then copiously irrigated with saline and used a narrow straight osteotome to remove any extra cement and removed any extra cement from the posterior condyles. Please note that I did use a laminar supervisor wound at one point to remove some posterior condylar osteophytes as well as some loose bodies posteriorly next to the capsule as well as the meniscus. When I examined this, it appeared that the femur had lateralized because the bone was so soft and that it did not go through the lug holes. This was off by about 5 mm, but it provided actually excellent alignment with good range of motion and excellent stability, and given that the alternative would be to remove an extensive amount of bone, this was left in place. Also, the patient is minimally ambulatory with low demand, and I believe that she will do quite well from the procedure. We then irrigated again and then placed tranexamic acid, let it sit for a little bit, and then placed Betadine-soaked irrigation and let that sit for 3 minutes. We then suctioned and placed 0.5 g of vancomycin below the arthrotomy. We closed the arthrotomy with #1 Stratafix in a continuous manner and then irrigated again with Betadine-infused irrigation over the capsule and then placed the other 0.5 g of vancomycin subcutaneously above the capsule. We then closed with #2 Stratafix in a continuous manner followed by tereza. A 20 cm Prevena wound VAC was then placed followed by Caleb wrap with slight compression. The patient was then allowed to awaken from conscious sedation, then transferred to her hospital bed and taken to the PACU in stable condition. /[id number] WILLIE/DEVIN
[2018-08-08] MEDS: Gabapentin 300 MG Cap *PTOM PO SCH (21:03)
[2018-08-08] MEDS: LIDOCAINE 4% TP SCH (21:04)
[2018-08-08] MEDS: PRAVASTATIN 20 MG PO SCH (21:04)
[2018-08-09] MEDS: traMADol 50 MG Tab PO PRN ×3 (00:03→22:48)
[2018-08-09] MEDS: Sodium Chloride 0.9% 10 ML Syringe FLUSH PRN ×4 (00:11→22:32)
[2018-08-09] MEDS: Acetaminophen 1,000 MG in Premix Bag 1 BAG IV SCH (05:58)
[2018-08-09] MEDS: Pantoprazole 40 MG Tab.CR PO SCH (06:03)
[2018-08-09] MEDS: Aspirin 325 MG Tab.EC PO SCH (08:22)
[2018-08-09] MEDS: VENLAFAXINE 150 MG PO SCH (08:23)
[2018-08-09] MEDS: METHIMAZOLE 5 MG PO SCH (08:23)
[2018-08-09] MEDS: Potassium Chloride 20 MEQ Tab.ER*PTOM PO SCH (08:23)
[2018-08-09] MEDS: Gabapentin 300 MG Cap *PTOM PO SCH ×2 (08:23→22:29)
[2018-08-09] MEDS: ISOSORBIDE MONONITRATE 30 MG PO SCH (08:24)
[2018-08-09] MEDS: Magnesium Oxide 400 MG Tab *PTOM PO SCH ×2 (08:24→18:22)
[2018-08-09] MEDS: LIDOCAINE 4% TP SCH ×2 (08:25→22:32)
[2018-08-09] MEDS ORDERED: Lactated Ringers 1,000 ML IV SCH (10:00)
--- NOTE | 2018-08-09 10:06 | PCM.PN ---
- General Info Date of Service: 08/09/18 Subjective Update: Ms. Singer is doing well and complains of minimal pain. Urine output was reported as 150ml overnight. Functional Status: Reports: Pain Controlled, Tolerating Diet - Review of Systems HEENT: Reports: No Symptoms Pulmonary: Denies: Shortness of Breath Cardiovascular: Reports: No Symptoms Gastrointestinal: Reports: No Symptoms - Patient Data Vitals - Most Recent: Last Vital Signs Temp 99.4 F 08/09/18 00:00 Pulse 93 08/09/18 00:00 Resp 20 08/09/18 00:00 BP 124/53 L 08/09/18 08:24 Pulse Ox 99 08/09/18 00:00 Weight - Most Recent: 95.821 kg I&O - Last 24 Hours: Intake & Output 08/08/18 08/09/18 08/09/18 22:59 06:59 14:59 Intake Total 600 100 Output Total 325 150 Balance 275 -50 Lab Results Last 24 Hours: Laboratory Results - last 24 hr 08/09/18 08/09/18 08/09/18 Range/Units 06:10 06:10 06:10 WBC 8.6 (4.5-12.0) X10-3/uL RBC 3.44 (3.23-5.20) x10(6)uL Hgb 10.3 L D (11.5-15.5) g/dL Hct 32.0 (30.0-51.3) % MCV 92.9 (80-96) fL MCH 30.0 (27.7-33.6) pg MCHC 32.3 (32.2-35.4) g/dL RDW 11.9 (11.5-15.5) % Plt Count 223 (125-369) X10(3)uL MPV 7.7 (7.4-10.4) fL Neut % (Auto) 72.3 (46-82) % Lymph % (Auto) 16.5 (13-37) % Hanson % (Auto) 9.3 (4-12) % Eos % (Auto) 2 (1.0-5.0) % Baso % (Auto) 0 (0-2) % Neut # (Auto) 6.3 (1.6-8.3) # Lymph # (Auto) 1.4 (0.6-5.0) # Hanson # (Auto) 0.8 (0.0-1.3) # Eos # (Auto) 0.1 (0.0-0.8) # Baso # (Auto) 0.0 (0.0-0.2) # Sodium 138 (135-145) mmol/L Potassium 3.7 (3.5-5.3) mmol/L Chloride 101 (100-110) mmol/L Carbon Dioxide 34 H (21-32) mmol/L BUN 17 (7-18) mg/dL Creatinine 0.4 L (0.55-1.02) mg/dL Est Cr Clr Drug Dosing 80.42 mL/min Estimated GFR (MDRD) > 60 (>60) BUN/Creatinine Ratio 42.5 H (9-20) Glucose 99 (80-116) mg/dL Calcium 8.6 (8.6-10.2) mg/dL Total Bilirubin 0.6 (0.1-1.3) mg/dL AST 21 D (5-25) IU/L ALT 21 D (12-36) U/L Alkaline Phosphatase 69 (56-112) IU/L Total Protein 5.8 L (6.0-8.0) g/dL Albumin 2.7 L (3.2-4.6) g/dL Globulin 3.1 g/dL Albumin/Globulin Ratio 0.9 TSH, Ultra Sensitive 1.24 (0.36-3.74) IU/mL Med Orders - Current: Current Medications Aspirin (Ecotrin) 325 mg PO DAILY [facility] Last Admin: 08/09/18 08:22 Dose: 325 mg Benzonatate (Tessalon Perles) 200 mg PO TID PRN PRN Reason: Cough Bisacodyl (Dulcolax) 10 mg PO DAILY PRN PRN Reason: Constipation Diphenhydramine HCl (Benadryl) 25 mg IVPUSH Q4H PRN PRN Reason: Itching Docusate Sodium (Colace) 100 mg PO BID PRN PRN Reason: Constipation Gabapentin (Neurontin) 300 mg PO DAILY [facility] Last Admin: 08/09/18 08:23 Dose: 300 mg Gabapentin (Neurontin) 600 mg PO BEDTIME [facility] Last Admin: 08/08/18 21:03 Dose: 600 mg Lactated Ringer's (Ringers, Lactated) 1,000 mls @ 999 mls/hr IV ASDIRECTED [facility] Isosorbide Mononitrate (Imdur) 30 mg PO DAILY [facility] Last Admin: 08/09/18 08:24 Dose: 30 mg Magnesium Hydroxide (Milk Of Magnesia) 30 ml PO BID PRN PRN Reason: Constipation Magnesium Oxide (Magnesium Oxide) 400 mg PO BIDMEALS [facility] Last Admin: 08/09/18 08:24 Dose: 400 mg Methimazole (Methimazole) 5 mg PO DAILY [facility] Last Admin: 08/09/18 08:23 Dose: 5 mg Naloxone HCl (Narcan) 0.1 mg IVPUSH ONETIME PRN PRN Reason: Oversedation Nitroglycerin (Nitrostat) 0.4 mg SL ASDIRECTED PRN PRN Reason: Chest Pain Lidocaine 4% Cream * (Ptom) 1 each TP BID [facility] Last Admin: 08/09/18 08:25 Dose: 1 each Ondansetron HCl (Zofran) 4 mg IVPUSH Q4H PRN PRN Reason: Nausea/Vomiting Pantoprazole Sodium (Protonix) 40 mg PO 0600 [facility] Last Admin: 08/09/18 06:03 Dose: 40 mg Potassium Chloride (Klor-Con M20) 30 meq PO DAILY [facility] Last Admin: 08/09/18 08:23 Dose: 30 meq Pravastatin Sodium (Pravachol) 20 mg PO BEDTIME [facility] Last Admin: 08/08/18 21:04 Dose: 20 mg Senna (Senna) 8.6 mg PO BID PRN PRN Reason: Constipation Sodium Chloride (Saline Flush) 10 ml FLUSH ASDIRECTED PRN PRN Reason: Keep Vein Open Last Admin: 08/09/18 06:10 Dose: 10 ml Tramadol HCl (Ultram) 100 mg PO Q8H PRN PRN Reason: Pain (mild 1-3) Last Admin: 08/09/18 00:03 Dose: 100 mg Venlafaxine HCl (Effexor Xr) 150 mg PO DAILY [facility] Last Admin: 08/09/18 08:23 Dose: 150 mg Discontinued Medications Acetaminophen (Tylenol Extra Strength) 1,000 mg PO ONETIME ONE Stop: 08/08/18 08:01 Last Admin: 08/08/18 08:23 Dose: Not Given Ropivacaine 49.25 ml/Ketorolac Tromethamine 30 mg/Epinephrine HCl 0.5 mg/ Clonidine HCl 80 mcg/ Sodium Chloride 48.45 ml 0 ml INJECT ASDIRECTED [facility] Stop: 08/08/18 09:35 Gabapentin (Neurontin) 300 mg PO ONETIME ONE Stop: 08/08/18 08:01 Last Admin: 08/08/18 08:23 Dose: Not Given Lactated Ringer's (Ringers, Lactated) 1,000 mls @ 125 mls/hr IV ASDIRECTED [facility] Last Admin: 08/08/18 14:39 Dose: 125 mls/hr Clindamycin/Sodium Chloride (Cleocin In Ns) 900 mg in 50 mls @ 100 mls/hr IV Q8H DAVID Clindamycin/Sodium Chloride (Cleocin In Ns) 900 mg in 50 mls @ 100 mls/hr IV ONETIME ONE Stop: 08/08/18 08:59 Last Admin: 08/08/18 08:47 Dose: 100 mls/hr Acetaminophen 1,000 mg/ Premix 100 mls @ 400 mls/hr IV Q6H [facility] Stop: 08/09/18 06:14 Last Admin: 08/09/18 05:58 Dose: 400 mls/hr Scopolamine (Transderm-Scop) 1.5 mg TRDERM Q72H ONE Stop: 08/08/18 08:01 Last Admin: 08/08/18 08:40 Dose: 1.5 mg Vancomycin HCl (Vancomycin) 1 gm .XX .STK-MED ONE Stop: 08/08/18 11:29 Last Admin: 08/08/18 11:28 Dose: 1 gm - Exam Quality Assessment: No: Supplemental Oxygen General: Alert, Oriented HEENT: Pupils Equal Neck: Supple Lungs: Clear to Auscultation Cardiovascular: Regular Rate Extremities: No: Pedal Edema - Problem List & Annotations (1) Dehydration SNOMED Code(s): 86436996 Code(s): E86.0 - DEHYDRATION Status: Acute Current Visit: Yes (2) Hypertension SNOMED Code(s): 65899520 Code(s): I10 - ESSENTIAL (PRIMARY) HYPERTENSION Status: Acute Current Visit: Yes Qualifiers: Hypertension type: essential hypertension Qualified Code(s): I10 - Essential (primary) hypertension Annotation/Comment:: Blood pressures currently adequately controlled. Continue home meds. (3) Status post total knee replacement, left SNOMED Code(s): 7915622090221 Code(s): Z96.652 - PRESENCE OF LEFT ARTIFICIAL KNEE JOINT Status: Acute Current Visit: Yes Annotation/Comment:: Managed per Dr. Hernandez. - Problem List Review Problem List Initiated/Reviewed/Updated: Yes - My Orders Last 24 Hours: My Active Orders 08/09/18 10:00 Lactated Ringers [Ringers, Lactated] 1,000 ml IV ASDIRECTED - Plan Plan:: I suggest 1 L LR bolus.May DC to N/home today,according to Dr Hernandez discretion
--- NOTE | 2018-08-09 10:06 | PCM.PN ---
- General Info Date of Service: 08/09/18 Functional Status: Reports: Pain Controlled, Tolerating Diet - Review of Systems General: Reports: No Symptoms HEENT: Reports: No Symptoms Pulmonary: Reports: No Symptoms Cardiovascular: Reports: No Symptoms Gastrointestinal: Reports: No Symptoms Genitourinary: Reports: No Symptoms, Other Musculoskeletal: Reports: Leg Pain, Joint Pain, Joint Swelling Skin: Reports: No Symptoms Neurological: Reports: No Symptoms Psychiatric: Reports: No Symptoms - Patient Data Vitals - Most Recent: Last Vital Signs Temp 99.4 F 08/09/18 00:00 Pulse 93 08/09/18 00:00 Resp 20 08/09/18 00:00 BP 124/53 L 08/09/18 08:24 Pulse Ox 99 08/09/18 00:00 Weight - Most Recent: 211 lb 4 oz I&O - Last 24 Hours: Intake & Output 08/08/18 08/09/18 08/09/18 22:59 06:59 14:59 Intake Total 600 100 Output Total 325 150 Balance 275 -50 Lab Results Last 24 Hours: Laboratory Results - last 24 hr 08/09/18 08/09/18 08/09/18 Range/Units 06:10 06:10 06:10 WBC 8.6 (4.5-12.0) X10-3/uL RBC 3.44 (3.23-5.20) x10(6)uL Hgb 10.3 L D (11.5-15.5) g/dL Hct 32.0 (30.0-51.3) % MCV 92.9 (80-96) fL MCH 30.0 (27.7-33.6) pg MCHC 32.3 (32.2-35.4) g/dL RDW 11.9 (11.5-15.5) % Plt Count 223 (125-369) X10(3)uL MPV 7.7 (7.4-10.4) fL Neut % (Auto) 72.3 (46-82) % Lymph % (Auto) 16.5 (13-37) % [place] % (Auto) 9.3 (4-12) % Eos % (Auto) 2 (1.0-5.0) % Baso % (Auto) 0 (0-2) % Neut # (Auto) 6.3 (1.6-8.3) # Lymph # (Auto) 1.4 (0.6-5.0) # [place] # (Auto) 0.8 (0.0-1.3) # Eos # (Auto) 0.1 (0.0-0.8) # Baso # (Auto) 0.0 (0.0-0.2) # Sodium 138 (135-145) mmol/L Potassium 3.7 (3.5-5.3) mmol/L Chloride 101 (100-110) mmol/L Carbon Dioxide 34 H (21-32) mmol/L BUN 17 (7-18) mg/dL Creatinine 0.4 L (0.55-1.02) mg/dL Est Cr Clr Drug Dosing 80.42 mL/min Estimated GFR (MDRD) > 60 (>60) BUN/Creatinine Ratio 42.5 H (9-20) Glucose 99 (80-116) mg/dL Calcium 8.6 (8.6-10.2) mg/dL Total Bilirubin 0.6 (0.1-1.3) mg/dL AST 21 D (5-25) IU/L ALT 21 D (12-36) U/L Alkaline Phosphatase 69 (56-112) IU/L Total Protein 5.8 L (6.0-8.0) g/dL Albumin 2.7 L (3.2-4.6) g/dL Globulin 3.1 g/dL Albumin/Globulin Ratio 0.9 TSH, Ultra Sensitive 1.24 (0.36-3.74) IU/mL Med Orders - Current: Current Medications Aspirin (Ecotrin) 325 mg PO DAILY [facility] Last Admin: 08/09/18 08:22 Dose: 325 mg Benzonatate (Tessalon Perles) 200 mg PO TID PRN PRN Reason: Cough Bisacodyl (Dulcolax) 10 mg PO DAILY PRN PRN Reason: Constipation Diphenhydramine HCl (Benadryl) 25 mg IVPUSH Q4H PRN PRN Reason: Itching Docusate Sodium (Colace) 100 mg PO BID PRN PRN Reason: Constipation Gabapentin (Neurontin) 300 mg PO DAILY [facility] Last Admin: 08/09/18 08:23 Dose: 300 mg Gabapentin (Neurontin) 600 mg PO BEDTIME [facility] Last Admin: 08/08/18 21:03 Dose: 600 mg Lactated Ringer's (Ringers, Lactated) 1,000 mls @ 999 mls/hr IV ASDIRECTED [facility] Isosorbide Mononitrate (Imdur) 30 mg PO DAILY [facility] Last Admin: 08/09/18 08:24 Dose: 30 mg Magnesium Hydroxide (Milk Of Magnesia) 30 ml PO BID PRN PRN Reason: Constipation Magnesium Oxide (Magnesium Oxide) 400 mg PO BIDMEALS [facility] Last Admin: 08/09/18 08:24 Dose: 400 mg Methimazole (Methimazole) 5 mg PO DAILY [facility] Last Admin: 08/09/18 08:23 Dose: 5 mg Naloxone HCl (Narcan) 0.1 mg IVPUSH ONETIME PRN PRN Reason: Oversedation Nitroglycerin (Nitrostat) 0.4 mg SL ASDIRECTED PRN PRN Reason: Chest Pain Lidocaine 4% Cream * (Ptom) 1 each TP BID [facility] Last Admin: 08/09/18 08:25 Dose: 1 each Ondansetron HCl (Zofran) 4 mg IVPUSH Q4H PRN PRN Reason: Nausea/Vomiting Pantoprazole Sodium (Protonix) 40 mg PO 0600 [facility] Last Admin: 08/09/18 06:03 Dose: 40 mg Potassium Chloride (Klor-Con M20) 30 meq PO DAILY [facility] Last Admin: 08/09/18 08:23 Dose: 30 meq Pravastatin Sodium (Pravachol) 20 mg PO BEDTIME [facility] Last Admin: 08/08/18 21:04 Dose: 20 mg Senna (Senna) 8.6 mg PO BID PRN PRN Reason: Constipation Sodium Chloride (Saline Flush) 10 ml FLUSH ASDIRECTED PRN PRN Reason: Keep Vein Open Last Admin: 08/09/18 06:10 Dose: 10 ml Tramadol HCl (Ultram) 100 mg PO Q8H PRN PRN Reason: Pain (mild 1-3) Last Admin: 08/09/18 00:03 Dose: 100 mg Venlafaxine HCl (Effexor Xr) 150 mg PO DAILY [facility] Last Admin: 08/09/18 08:23 Dose: 150 mg Discontinued Medications Acetaminophen (Tylenol Extra Strength) 1,000 mg PO ONETIME ONE Stop: 08/08/18 08:01 Last Admin: 08/08/18 08:23 Dose: Not Given Ropivacaine 49.25 ml/Ketorolac Tromethamine 30 mg/Epinephrine HCl 0.5 mg/ Clonidine HCl 80 mcg/ Sodium Chloride 48.45 ml 0 ml INJECT ASDIRECTED [facility] Stop: 08/08/18 09:35 Gabapentin (Neurontin) 300 mg PO ONETIME ONE Stop: 08/08/18 08:01 Last Admin: 08/08/18 08:23 Dose: Not Given Lactated Ringer's (Ringers, Lactated) 1,000 mls @ 125 mls/hr IV ASDIRECTED [facility] Last Admin: 08/08/18 14:39 Dose: 125 mls/hr Clindamycin/Sodium Chloride (Cleocin In Ns) 900 mg in 50 mls @ 100 mls/hr IV Q8H [facility] Clindamycin/Sodium Chloride (Cleocin In Ns) 900 mg in 50 mls @ 100 mls/hr IV ONETIME ONE Stop: 08/08/18 08:59 Last Admin: 08/08/18 08:47 Dose: 100 mls/hr Acetaminophen 1,000 mg/ Premix 100 mls @ 400 mls/hr IV Q6H [facility] Stop: 08/09/18 06:14 Last Admin: 08/09/18 05:58 Dose: 400 mls/hr Scopolamine (Transderm-Scop) 1.5 mg TRDERM Q72H ONE Stop: 08/08/18 08:01 Last Admin: 08/08/18 08:40 Dose: 1.5 mg Vancomycin HCl (Vancomycin) 1 gm .XX .STK-MED ONE Stop: 08/08/18 11:29 Last Admin: 08/08/18 11:28 Dose: 1 gm - Exam General: Alert, Oriented, Cooperative, Mild Distress HEENT: Pupils Equal, Pupils Reactive, EOMI, Mucous Membr. Moist/[place] Neck: Supple, Trachea Midline Lungs: Normal Respiratory Effort Extremities: Joint Swelling, Leg Pain, Limited Range of Motion Peripheral Pulses: 2+: Posterior Tibial (L), Dorsalis Pedis (L) Skin: Warm, Dry, Intact Wound/Incisions: Healing Well, Dressing Dry and Intact, No Drainage Neurological: No New Focal Deficit Psy/Mental Status: Alert, Normal Affect, Normal Mood Physical Findings Comments:: Increased warmth and firmness around joint. Most likely due to localized post operative bleeding and adductor block. Will monitor. - Problem List & Annotations (1) Unilateral primary osteoarthritis, left knee SNOMED Code(s): 122310844720700, 503841784057679 Code(s): M17.12 - UNILATERAL PRIMARY OSTEOARTHRITIS, LEFT KNEE Status: Acute Current Visit: Yes (2) Status post total knee replacement, left SNOMED Code(s): 0378434111051 Code(s): Z96.652 - PRESENCE OF LEFT ARTIFICIAL KNEE JOINT Status: Acute Current Visit: Yes Annotation/Comment:: Managed per Dr. Hernandez. - Problem List Review Problem List Initiated/Reviewed/Updated: Yes - My Orders Last 24 Hours: My Active Orders 08/08/18 12:00 Bisacodyl [Dulcolax] 10 mg PO DAILY PRN Docusate Sodium [Colace] 100 mg PO BID PRN Magnesium Hydroxide [Milk of Magnesia] 30 ml PO BID PRN Naloxone [Narcan] 0.1 mg IVPUSH ONETIME PRN Ondansetron [Zofran] 4 mg IVPUSH Q4H PRN Sennosides [Senna] 8.6 mg PO BID PRN diphenhydrAMINE [Benadryl] 25 mg IVPUSH Q4H PRN traMADol [Ultram] 100 mg PO Q8H PRN 08/08/18 12:01 Ambulate [RC] ASDIRECTED Antiembolic Devices [RC] .Routine Head of Bed Elevation [RC] CONTINUOUS Intake and Output [RC] ,,13 November Shower [RC] ASDIRECTED Neurovascular Check [RC] 08,12,16,20,00,04 Notify Provider Consults [RC] ASDIRECTED Pneumonia Education [RC] UPON Pulse Oximetry [RC] CONTINUOUS RT Incentive Spirometry [RC] Q1HWA Turn, Cough, Deep Breathe [RC] Q1HWA Up to Chair [RC] TIDMEALS VTE/DVT Education [RC] Click to Edit Vital Signs [RC] ,, Wound Care [RC] , Consult to Physician [CONS] Routine Respiratory Care Assess and Treatment [CONS] Routine DVT/VTE Prophylaxis Reflex [OM.PC] Routine Sequential Compression Device [OM.PC] Per Unit Routine Weight bearing status [OM.PC] Routine 08/08/18 12:06 Benzonatate [Tessalon Perles] 200 mg PO TID PRN Nitroglycerin [Nitrostat] 0.4 mg SL ASDIRECTED PRN 08/08/18 12:15 Convert IV to Saline Lock [OM.PC] PER UNIT ROUTINE Ice Therapy [OM.PC] PER UNIT ROUTINE Oral Care [OM.PC] BID 08/08/18 15:00 OT Evaluation and Treatment [CONS] Routine PT Evaluation and Treatment [CONS] Routine 08/08/18 21:00 Pravastatin [Pravachol] 20 mg PO BEDTIME 08/08/18 Dinner 2 Gram Sodium Diet [DIET] Clear Liquid Diet [DIET] 08/09/18 06:00 Pantoprazole [ProTONIX] 40 mg PO 0600 08/09/18 09:00 Aspirin [Ecotrin] 325 mg PO DAILY Isosorbide Mononitrate [Imdur] 30 mg PO DAILY Potassium Chloride [Klor-Con M20] 30 meq PO DAILY Venlafaxine [Effexor XR] 150 mg PO DAILY 08/09/18 12:00 Urinary Catheter Removal [RC] Per Unit Routine 08/09/18 12:15 Oral Care [OM.PC] BID 08/10/18 05:15 CBC WITH AUTO DIFF [HEME] DAILY COMPREHENSIVE METABOLIC PN,CMP [CHEM] DAILY 08/10/18 12:15 Oral Care [OM.PC] BID 08/11/18 05:15 CBC WITH AUTO DIFF [HEME] DAILY COMPREHENSIVE METABOLIC PN,CMP [CHEM] DAILY 08/11/18 12:15 Oral Care [OM.PC] BID 08/12/18 05:15 CBC WITH AUTO DIFF [HEME] DAILY COMPREHENSIVE METABOLIC PN,CMP [CHEM] DAILY 08/12/18 12:15 Oral Care [OM.PC] BID 08/13/18 05:15 CBC WITH AUTO DIFF [HEME] DAILY 08/13/18 12:15 Oral Care [OM.PC] BID 08/14/18 12:15 Oral Care [OM.PC] BID 08/15/18 12:15 Oral Care [OM.PC] BID 08/16/18 12:15 Oral Care [OM.PC] BID 08/17/18 12:15 Oral Care [OM.PC] BID - Plan Plan:: A: 88 yo female Left knee primary oa pod 1 l tka P: PT/OT/pain control/dvt prophylaxis will monitor today for urine output and strength if decreased urine output continues will switch to observation status and most likely dc tomorrow to [facility]
--- NOTE | 2018-08-09 10:45 | PCM.DCSUM1 ---
Discharge Summary - Hospital Course Free Text/Narrative:: 88 yo female Left tka 08/08 - Discharge Data Discharge Date: 08/09/18 Discharge Disposition: Home, Self-Care 01 Condition: Good - Discharge Diagnosis/Problem(s) (1) Unilateral primary osteoarthritis, left knee SNOMED Code(s): 073091171773740, 706068049461287 ICD Code: M17.12 - UNILATERAL PRIMARY OSTEOARTHRITIS, LEFT KNEE Status: Acute Current Visit: Yes (2) Status post total knee replacement, left SNOMED Code(s): 0164953393898 ICD Code: Z96.652 - PRESENCE OF LEFT ARTIFICIAL KNEE JOINT Status: Acute Current Visit: Yes Problem Details: Managed per Dr. Hernandez. - Patient Summary/Data Operative Procedure(s) Performed: left tka Consults: Consultations 08/08/18 12:01 Consult to Physician [CONS] Routine Consulting Provider: Ana Muñoz Call Completed to Consulting Physician: Yes Reason for Consult: med management Respiratory Care Assess and Treatment [CONS] Routine Comment: Physician Instructions: Post-op Pneumonia Prevention 08/08/18 15:00 OT Evaluation and Treatment [CONS] Routine Please Evaluate and Treat. OT Reason for Consult: Strengthening This query below is only for informational purposes and is not editable. Admission Diagnosis/Problem: Knee joint replacement by other means PT Evaluation and Treatment [CONS] Routine Please Evaluate and Treat. PT Reason for Consult: Strengthening This query below is only for informational purposes and is not editable. Admission Diagnosis/Problem: Knee joint replacement by other means - Patient Instructions Diet: Usual Diet as Tolerated Activity: As Tolerated, Full Weight Bearing, No Strenuous Activities Driving: May Drive Today Showering/Bathing: May Shower Wound/Incision Care: Do NOT Change Dressing Wound/Incision, Other: keep wound vac on until 08/14/18 then apply daily sponge dressing Notify Provider of: Fever, Increased Pain, Swelling and Redness, Drainage, Nausea and/or Vomiting - Discharge Plan *PRESCRIPTION DRUG MONITORING PROGRAM REVIEWED*: No *COPY OF PRESCRIPTION DRUG MONITORING REPORT IN PATIENT ANTONIA: No Prescriptions/Med Rec: Aspirin [Ecotrin] 325 mg PO DAILY #21 tab.ec Home Medications: Home Meds Isosorbide Mononitrate [Imdur] 30 mg PO DAILY 11/24/15 [History] Methimazole [Tapazole] 5 mg PO DAILY 11/24/15 [History] Gabapentin [Neurontin] 600 mg PO BEDTIME 11/25/15 [History] Acetaminophen [Acetaminophen Extra Strength] 1,000 mg PO TID 02/07/18 [History] Bisacodyl [Dulcolax] 1 supp RECTAL Q72H PRN 02/07/18 [History] Calcium Carbonate/Simethicone [Jadyn-[place] Heartburn+Gas] 2 ea PO TID PRN 02/07 [History] Dextran 70/Hypromellose [Artificial Tears Eye Drops] 1 drop EYEBOTH BID [History] Furosemide [Lasix] 40 mg PO BID 02/07/18 [History] Gabapentin [Neurontin] 300 mg PO DAILY 02/07/18 [History] Lidocaine/Transparent Dressing [Anecream 4% Kit] 1 each TP BID 02/07/18 [History ] Loperamide [Imodium AD] 2 mg PO ASDIRECTED PRN 02/07/18 [History] Magnesium Hydroxide [Milk of Magnesia] 30 ml PO DAILY 02/07/18 [History] Magnesium Oxide 400 mg PO BID 02/07/18 [History] Nitroglycerin 0.4 mg SL ASDIRECTED PRN 02/07/18 [History] Pravastatin Sodium [Pravachol] 20 mg PO BEDTIME 02/07/18 [History] Venlafaxine [Effexor XR] 150 mg PO DAILY 02/07/18 [History] guaiFENesin [Robitussin] 10 ml PO Q4H PRN 02/07/18 [History] traMADol [Ultram] 50 mg PO TID 02/07/18 [History] Acetaminophen/HYDROcodone [[place] 325-5 MG] 1 tab PO Q8H PRN 08/07/18 [History] Cholecalciferol (Vitamin D3) [Vitamin D3] 1,000 unit PO DAILY 08/07/18 [History] Dextran 70/Hypromellose [Artificial Tears] 1 drop EYEBOTH Q1H PRN 08/07/18 [ History] Acetaminophen [Tylenol] 650 mg PO Q4H PRN 08/08/18 [History] Benzonatate 200 mg PO TID PRN 08/08/18 [History] [place]he Tar [Ashvin-Gel Tar] 118 ml TP TH 08/08/18 [History] Eucalyptus Oil/Menthol/Camphor [Vicks Vaporub Ointment] 1 applic TP ASDIRECTED PRN 08/08/18 [History] Krill/Om-3/DHA/EPA/Phospho/Ast [Krill Oil 500 mg Softgel] 500 mg PO DAILY [History] Potassium Chloride [Klor-Con M20] 30 meq PO DAILY 08/08/18 [History] traMADol [Ultram] 50 mg PO TID PRN 08/08/18 [History] Aspirin [Ecotrin] 325 mg PO DAILY #21 tab.ec 08/09/18 [Rx] Patient Handouts: Preventing Problems After Surgery, Deep Vein Thrombosis - Discharge Summary/Plan Comment DC Time >30 min.: No - Patient Data Vitals - Most Recent: Last Vital Signs Temp 99.4 F 08/09/18 00:00 Pulse 93 08/09/18 00:00 Resp 20 08/09/18 00:00 BP 124/53 L 08/09/18 08:24 Pulse Ox 99 08/09/18 00:00 Weight - Most Recent: 211 lb 4 oz I&O - Last 24 hours: Intake & Output 08/08/18 08/09/18 08/09/18 22:59 06:59 14:59 Intake Total 731 228 0504 Output Total 325 150 Balance 275 -50 1000 Lab Results - Last 24 hrs: Laboratory Results - last 24 hr 08/09/18 08/09/18 08/09/18 Range/Units 06:10 06:10 06:10 WBC 8.6 (4.5-12.0) X10-3/uL RBC 3.44 (3.23-5.20) x10(6)uL Hgb 10.3 L D (11.5-15.5) g/dL Hct 32.0 (30.0-51.3) % MCV 92.9 (80-96) fL MCH 30.0 (27.7-33.6) pg MCHC 32.3 (32.2-35.4) g/dL RDW 11.9 (11.5-15.5) % Plt Count 223 (125-369) X10(3)uL MPV 7.7 (7.4-10.4) fL Neut % (Auto) 72.3 (46-82) % Lymph % (Auto) 16.5 (13-37) % [place] % (Auto) 9.3 (4-12) % Eos % (Auto) 2 (1.0-5.0) % Baso % (Auto) 0 (0-2) % Neut # (Auto) 6.3 (1.6-8.3) # Lymph # (Auto) 1.4 (0.6-5.0) # [place] # (Auto) 0.8 (0.0-1.3) # Eos # (Auto) 0.1 (0.0-0.8) # Baso # (Auto) 0.0 (0.0-0.2) # Sodium 138 (135-145) mmol/L Potassium 3.7 (3.5-5.3) mmol/L Chloride 101 (100-110) mmol/L Carbon Dioxide 34 H (21-32) mmol/L BUN 17 (7-18) mg/dL Creatinine 0.4 L (0.55-1.02) mg/dL Est Cr Clr Drug Dosing 80.42 mL/min Estimated GFR (MDRD) > 60 (>60) BUN/Creatinine Ratio 42.5 H (9-20) Glucose 99 (80-116) mg/dL Calcium 8.6 (8.6-10.2) mg/dL Total Bilirubin 0.6 (0.1-1.3) mg/dL AST 21 D (5-25) IU/L ALT 21 D (12-36) U/L Alkaline Phosphatase 69 (56-112) IU/L Total Protein 5.8 L (6.0-8.0) g/dL Albumin 2.7 L (3.2-4.6) g/dL Globulin 3.1 g/dL Albumin/Globulin Ratio 0.9 TSH, Ultra Sensitive 1.24 (0.36-3.74) IU/mL Med Orders - Current: Current Medications Aspirin (Ecotrin) 325 mg PO DAILY [facility] Last Admin: 08/09/18 08:22 Dose: 325 mg Benzonatate (Tessalon Perles) 200 mg PO TID PRN PRN Reason: Cough Bisacodyl (Dulcolax) 10 mg PO DAILY PRN PRN Reason: Constipation Diphenhydramine HCl (Benadryl) 25 mg IVPUSH Q4H PRN PRN Reason: Itching Docusate Sodium (Colace) 100 mg PO BID PRN PRN Reason: Constipation Gabapentin (Neurontin) 300 mg PO DAILY [facility] [place] Last Admin: 08/09/18 08:23 Dose: 300 mg Gabapentin (Neurontin) 600 mg PO BEDTIME [facility] [place] Last Admin: 08/08/18 21:03 Dose: 600 mg Lactated Ringer's (Ringers, Lactated) 1,000 mls @ 999 mls/hr IV ASDIRECTED [facility] [place] Last Admin: 08/09/18 10:27 Dose: 999 mls/hr Isosorbide Mononitrate (Imdur) 30 mg PO DAILY [facility] [place] Last Admin: 08/09/18 08:24 Dose: 30 mg Magnesium Hydroxide (Milk Of Magnesia) 30 ml PO BID PRN PRN Reason: Constipation Magnesium Oxide (Magnesium Oxide) 400 mg PO BIDMEALS [facility] [place] Last Admin: 08/09/18 08:24 Dose: 400 mg Methimazole (Methimazole) 5 mg PO DAILY [facility] [place] Last Admin: 08/09/18 08:23 Dose: 5 mg Naloxone HCl (Narcan) 0.1 mg IVPUSH ONETIME PRN PRN Reason: Oversedation Nitroglycerin (Nitrostat) 0.4 mg SL ASDIRECTED PRN PRN Reason: Chest Pain Lidocaine 4% Cream * (Ptom) 1 each TP BID [facility] [place] Last Admin: 08/09/18 08:25 Dose: 1 each Ondansetron HCl (Zofran) 4 mg IVPUSH Q4H PRN PRN Reason: Nausea/Vomiting Pantoprazole Sodium (Protonix) 40 mg PO 0600 [facility] [place] Last Admin: 08/09/18 06:03 Dose: 40 mg Potassium Chloride (Klor-Con M20) 30 meq PO DAILY [facility] [place] Last Admin: 08/09/18 08:23 Dose: 30 meq Pravastatin Sodium (Pravachol) 20 mg PO BEDTIME [facility] [place] Last Admin: 08/08/18 21:04 Dose: 20 mg Senna (Senna) 8.6 mg PO BID PRN PRN Reason: Constipation Sodium Chloride (Saline Flush) 10 ml FLUSH ASDIRECTED PRN PRN Reason: Keep Vein Open Last Admin: 08/09/18 10:26 Dose: 10 ml Tramadol HCl (Ultram) 100 mg PO Q8H PRN PRN Reason: Pain (mild 1-3) Last Admin: 08/09/18 00:03 Dose: 100 mg Venlafaxine HCl (Effexor Xr) 150 mg PO DAILY [facility] [place] Last Admin: 08/09/18 08:23 Dose: 150 mg Discontinued Medications Acetaminophen (Tylenol Extra Strength) 1,000 mg PO ONETIME ONE Stop: 08/08/18 08:01 Last Admin: 08/08/18 08:23 Dose: Not Given Ropivacaine 49.25 ml/Ketorolac Tromethamine 30 mg/Epinephrine HCl 0.5 mg/ Clonidine HCl 80 mcg/ Sodium Chloride 48.45 ml 0 ml INJECT ASDIRECTED [facility] Stop: 08/08/18 09:35 Gabapentin (Neurontin) 300 mg PO ONETIME ONE Stop: 08/08/18 08:01 Last Admin: 08/08/18 08:23 Dose: Not Given Lactated Ringer's (Ringers, Lactated) 1,000 mls @ 125 mls/hr IV ASDIRECTED [facility] [place] Last Admin: 08/08/18 14:39 Dose: 125 mls/hr Clindamycin/Sodium Chloride (Cleocin In Ns) 900 mg in 50 mls @ 100 mls/hr IV Q8H [facility] [place] Clindamycin/Sodium Chloride (Cleocin In Ns) 900 mg in 50 mls @ 100 mls/hr IV ONETIME ONE Stop: 08/08/18 08:59 Last Admin: 08/08/18 08:47 Dose: 100 mls/hr Acetaminophen 1,000 mg/ Premix 100 mls @ 400 mls/hr IV Q6H [facility] [place] Stop: 08/09/18 06:14 Last Admin: 08/09/18 05:58 Dose: 400 mls/hr Scopolamine (Transderm-Scop) 1.5 mg TRDERM Q72H ONE Stop: 08/08/18 08:01 Last Admin: 08/08/18 08:40 Dose: 1.5 mg Vancomycin HCl (Vancomycin) 1 gm .XX .STK-MED ONE Stop: 08/08/18 11:29 Last Admin: 08/08/18 11:28 Dose: 1 gm
--- NOTE | 2018-08-09 12:01 | PCM.SN ---
- Free Text/Narrative Note: Will keep patient overnight on OBS Status due to low urine output. Patient has not voided yet. Patient is also very lethargic and needed lift to chair. Not feeding herself at this point yet. I have discussed dc to e[facility] tomorrow with hospitalist.
[2018-08-09] MEDS ORDERED: Acetaminophen 325 MG Tab PO PRN (18:56)
[2018-08-09] MEDS: PRAVASTATIN 20 MG PO SCH (22:30)
[2018-08-10] MEDS: Pantoprazole 40 MG Tab.CR PO SCH (05:49)
[2018-08-10] MEDS: traMADol 50 MG Tab PO PRN (06:35)
--- NOTE | 2018-08-10 08:51 | PCM.PN ---
- General Info Date of Service: 08/10/18 Subjective Update: Was lethargic yesterday,held discharge.redy to go to detention today Functional Status: Reports: Pain Controlled - Review of Systems General: Reports: Weakness HEENT: Reports: No Symptoms Pulmonary: Reports: No Symptoms Cardiovascular: Reports: No Symptoms Gastrointestinal: Reports: No Symptoms - Patient Data Vitals - Most Recent: Last Vital Signs Temp 99.6 F 08/10/18 06:03 Pulse 87 08/10/18 06:03 Resp 20 08/10/18 06:03 BP 128/64 08/10/18 06:03 Pulse Ox 92 L 08/09/18 12:01 Weight - Most Recent: 95.821 kg I&O - Last 24 Hours: Intake & Output 08/09/18 08/10/18 08/10/18 22:59 06:59 14:59 Intake Total 30 500 Balance 30 500 Lab Results Last 24 Hours: Laboratory Results - last 24 hr 08/10/18 08/10/18 Range/Units 06:12 06:12 WBC 9.2 (4.5-12.0) X10-3/uL RBC 3.27 (3.23-5.20) x10(6)uL Hgb 10.1 L (11.5-15.5) g/dL Hct 30.5 (30.0-51.3) % MCV 93.2 (80-96) fL MCH 30.8 (27.7-33.6) pg MCHC 33.0 (32.2-35.4) g/dL RDW 11.9 (11.5-15.5) % Plt Count 201 (125-369) X10(3)uL MPV 8.1 (7.4-10.4) fL Neut % (Auto) 75.0 (46-82) % Lymph % (Auto) 14.4 (13-37) % [place] % (Auto) 8.4 (4-12) % Eos % (Auto) 2 (1.0-5.0) % Baso % (Auto) 0 (0-2) % Neut # (Auto) 6.9 (1.6-8.3) # Lymph # (Auto) 1.3 (0.6-5.0) # Baca # (Auto) 0.8 (0.0-1.3) # Eos # (Auto) 0.2 (0.0-0.8) # Baso # (Auto) 0.0 (0.0-0.2) # Sodium 136 (135-145) mmol/L Potassium 3.7 (3.5-5.3) mmol/L Chloride 101 (100-110) mmol/L Carbon Dioxide 32 (21-32) mmol/L BUN 16 (7-18) mg/dL Creatinine 0.4 L (0.55-1.02) mg/dL Est Cr Clr Drug Dosing 80.42 mL/min Estimated GFR (MDRD) > 60 (>60) BUN/Creatinine Ratio 40.0 H (9-20) Glucose 109 (80-116) mg/dL Calcium 8.9 (8.6-10.2) mg/dL Total Bilirubin 0.8 (0.1-1.3) mg/dL AST 20 (5-25) IU/L ALT 22 (12-36) U/L Alkaline Phosphatase 65 (56-112) IU/L Total Protein 5.9 L (6.0-8.0) g/dL Albumin 2.7 L (3.2-4.6) g/dL Globulin 3.2 g/dL Albumin/Globulin Ratio 0.8 Med Orders - Current: Current Medications Acetaminophen (Tylenol) 650 mg PO Q4H PRN PRN Reason: Fever Aspirin (Ecotrin) 325 mg PO DAILY [facility] Last Admin: 08/09/18 08:22 Dose: 325 mg Benzonatate (Tessalon Perles) 200 mg PO TID PRN PRN Reason: Cough Bisacodyl (Dulcolax) 10 mg PO DAILY PRN PRN Reason: Constipation Diphenhydramine HCl (Benadryl) 25 mg IVPUSH Q4H PRN PRN Reason: Itching Docusate Sodium (Colace) 100 mg PO BID PRN PRN Reason: Constipation Gabapentin (Neurontin) 300 mg PO DAILY [facility] Last Admin: 08/09/18 08:23 Dose: 300 mg Gabapentin (Neurontin) 600 mg PO BEDTIME [facility] Last Admin: 08/09/18 22:29 Dose: 600 mg Isosorbide Mononitrate (Imdur) 30 mg PO DAILY [facility] Last Admin: 08/09/18 08:24 Dose: 30 mg Magnesium Hydroxide (Milk Of Magnesia) 30 ml PO BID PRN PRN Reason: Constipation Magnesium Oxide (Magnesium Oxide) 400 mg PO BIDMEALS [facility] Last Admin: 08/09/18 18:22 Dose: 400 mg Methimazole (Methimazole) 5 mg PO DAILY [facility] Last Admin: 08/09/18 08:23 Dose: 5 mg Naloxone HCl (Narcan) 0.1 mg IVPUSH ONETIME PRN PRN Reason: Oversedation Nitroglycerin (Nitrostat) 0.4 mg SL ASDIRECTED PRN PRN Reason: Chest Pain Lidocaine 4% Cream * (Ptom) 1 each TP BID [facility] Last Admin: 08/09/18 22:32 Dose: 1 each Ondansetron HCl (Zofran) 4 mg IVPUSH Q4H PRN PRN Reason: Nausea/Vomiting Pantoprazole Sodium (Protonix) 40 mg PO 0600 [facility] Last Admin: 08/10/18 05:49 Dose: 40 mg Potassium Chloride (Klor-Con M20) 30 meq PO DAILY [facility] Last Admin: 08/09/18 08:23 Dose: 30 meq Pravastatin Sodium (Pravachol) 20 mg PO BEDTIME [facility] Last Admin: 08/09/18 22:30 Dose: 20 mg Senna (Senna) 8.6 mg PO BID PRN PRN Reason: Constipation Sodium Chloride (Saline Flush) 10 ml FLUSH ASDIRECTED PRN PRN Reason: Keep Vein Open Last Admin: 08/09/18 22:32 Dose: 10 ml Tramadol HCl (Ultram) 100 mg PO Q8H PRN PRN Reason: Pain (mild 1-3) Last Admin: 08/10/18 06:35 Dose: 100 mg Venlafaxine HCl (Effexor Xr) 150 mg PO DAILY [facility] Last Admin: 08/09/18 08:23 Dose: 150 mg Discontinued Medications Acetaminophen (Tylenol Extra Strength) 1,000 mg PO ONETIME ONE Stop: 08/08/18 08:01 Last Admin: 08/08/18 08:23 Dose: Not Given Ropivacaine 49.25 ml/Ketorolac Tromethamine 30 mg/Epinephrine HCl 0.5 mg/ Clonidine HCl 80 mcg/ Sodium Chloride 48.45 ml 0 ml INJECT ASDIRECTED [facility] Stop: 08/08/18 09:35 Fentanyl (Sublimaze) 75 mcg IV .STK-MED ONE Stop: 08/08/18 12:08 Gabapentin (Neurontin) 300 mg PO ONETIME ONE Stop: 08/08/18 08:01 Last Admin: 08/08/18 08:23 Dose: Not Given Lactated Ringer's (Ringers, Lactated) 1,000 mls @ 125 mls/hr IV ASDIRECTED [facility] Last Admin: 08/08/18 14:39 Dose: 125 mls/hr Clindamycin/Sodium Chloride (Cleocin In Ns) 900 mg in 50 mls @ 100 mls/hr IV Q8H [facility] Clindamycin/Sodium Chloride (Cleocin In Ns) 900 mg in 50 mls @ 100 mls/hr IV ONETIME ONE Stop: 08/08/18 08:59 Last Admin: 08/08/18 08:47 Dose: 100 mls/hr Acetaminophen 1,000 mg/ Premix 100 mls @ 400 mls/hr IV Q6H [facility] Stop: 08/09/18 06:14 Last Admin: 08/09/18 05:58 Dose: 400 mls/hr Lactated Ringer's (Ringers, Lactated) 1,000 mls @ 999 mls/hr IV ASDIRECTED [facility] Last Admin: 08/09/18 10:27 Dose: 999 mls/hr Lactated Ringer's (Ringers, Lactated) 1,000 mls @ as directed IV .STK-MED ONE Stop: 08/08/18 12:08 Midazolam HCl (Versed 1 Mg/Ml) 3 mg IV .STK-MED ONE Stop: 08/08/18 12:08 Ropivacaine (Naropin 0.5%) 20 ml .XX .STK-MED ONE Stop: 08/08/18 12:08 Scopolamine (Transderm-Scop) 1.5 mg TRDERM Q72H ONE Stop: 08/08/18 08:01 Last Admin: 08/08/18 08:40 Dose: 1.5 mg Vancomycin HCl (Vancomycin) 1 gm .XX .STK-MED ONE Stop: 08/08/18 11:29 Last Admin: 08/08/18 11:28 Dose: 1 gm - Exam Quality Assessment: Supplemental Oxygen General: Alert HEENT: Pupils Equal Neck: Supple Lungs: Clear to Auscultation, Wheezing Cardiovascular: Regular Rate - Problem List & Annotations (1) Dehydration SNOMED Code(s): 07296074 Code(s): E86.0 - DEHYDRATION Status: Acute Current Visit: Yes (2) Hypertension SNOMED Code(s): 50358703 Code(s): I10 - ESSENTIAL (PRIMARY) HYPERTENSION Status: Acute Current Visit: Yes Qualifiers: Hypertension type: essential hypertension Qualified Code(s): I10 - Essential (primary) hypertension Annotation/Comment:: Blood pressures currently adequately controlled. Continue home meds. (3) Status post total knee replacement, left SNOMED Code(s): 8567547151913 Code(s): Z96.652 - PRESENCE OF LEFT ARTIFICIAL KNEE JOINT Status: Acute Current Visit: Yes Annotation/Comment:: Managed per Dr. Hernandez. - Problem List Review Problem List Initiated/Reviewed/Updated: Yes - My Orders Last 24 Hours: My Active Orders 08/09/18 18:56 Acetaminophen [Tylenol] 650 mg PO Q4H PRN - Plan Plan:: DC to senior care home today
[2018-08-10] MEDS: METHIMAZOLE 5 MG PO SCH (08:57)
[2018-08-10] MEDS: Gabapentin 300 MG Cap *PTOM PO SCH (08:57)
[2018-08-10] MEDS: Potassium Chloride 20 MEQ Tab.ER*PTOM PO SCH (08:58)
[2018-08-10] MEDS: ISOSORBIDE MONONITRATE 30 MG PO SCH (08:58)
[2018-08-10] MEDS: Aspirin 325 MG Tab.EC PO SCH (09:01)
[2018-08-10] MEDS: Magnesium Oxide 400 MG Tab *PTOM PO SCH (09:02)
[2018-08-10] MEDS: LIDOCAINE 4% TP SCH (09:02)
[2018-08-10] MEDS: VENLAFAXINE 150 MG PO SCH (09:02)
[2018-08-10 09:03] VITALS: BP 136/74
--- NOTE | 2018-08-12 13:32 | US ---
INDICATION: Nerve block, left femoral. ULTRASOUND GUIDED INTERVENTION ACCESS: Ultrasonic images designated the position of the femoral nerve for nerve block. Two images were obtained. SHILA
== END 2018-08-10 11:03 ==
LOC: FB.SDS 07:38 → FB.MS 13:28 → FB.SDS 08-09 12:06 → FB.MS 08-09 12:06
PROVIDERS: ADMIT Orthopaedic Surgery; ATTEND Orthopaedic Surgery
DX: M17.12 Unilateral primary osteoarthritis, left knee (principal); I11.0 Hypertensive heart disease with heart failure; I50.32 Chronic diastolic (congestive) heart failure; E78.00 Pure hypercholesterolemia, unspecified; K21.9 Gastro-esophageal reflux disease without esophagitis; F32.5 Major depressive disorder, single episode, in full remission; E05.90 Thyrotoxicosis, unspecified without thyrotoxic crisis or storm; Z79.899 Other long term (current) drug therapy; Z88.6 Allergy status to analgesic agent; Z88.5 Allergy status to narcotic agent
CPT/HCPCS: 01402; 27447; 36415; 73560; 76937; 80053; 84443; 85025; 86850; 86900; 86901; 94150; 97110; 97161; 97530; A9270; J0131; J2250; J2795; J3010; J3370; J3490; J7120